=== PATIENT | male | born 1990 | race Caucasian/White ===

== ENCOUNTER 2017-06-27 17:49 | Emergency (ER) | payer OTHER ==
[2017-06-27] MEDS ORDERED: Adacel (T-DAP) 0.5 ML VIAL ONE (18:51)
--- NOTE | 2017-06-27 19:28 | RAD ---
THREE VIEWS OF THE LEFT HAND 06/27/17 INDICATION: Laceration. FINDINGS: No acute fracture or subluxation is evident. No radiopaque foreign body is demonstrated. IMPRESSION: No radiopaque foreign body. No acute osseous abnormality. POS: [facility]
== END 2017-06-27 20:20 | disposition home or self-care (01) ==
LOC: SCSER 17:49
DX: S61.412A Laceration without foreign body of left hand, initial encounter (principal); F17.210 Nicotine dependence, cigarettes, uncomplicated; Z23 Encounter for immunization; W26.8XXA Contact with other sharp object(s), not elsewhere classified, initial encounter; Y92.69 Other specified industrial and construction area as the place of occurrence of the external cause; Y99.0 Civilian activity done for income or pay
CPT/HCPCS: 12001; 90471; 90715; 99406

== ENCOUNTER 2024-07-04 14:25 | Inpatient (IN) | payer BC ==
[2024-07-04 14:48] VITALS: BMI 29.2
[2024-07-04] MEDS: Lorazepam 2 MG/ML VIAL ONE (14:50)
[2024-07-04] MEDS ORDERED: Ondansetron ODT 4 MG TAB PO PRN (15:07)
[2024-07-04] MEDS ORDERED: Lorazepam 1 MG TAB PO PRN (15:07)
[2024-07-04] MEDS ORDERED: Lorazepam 2 MG/ML VIAL IM PRN (15:07)
[2024-07-04] MEDS ORDERED: Lorazepam 1 MG TAB PO SCH (15:15)
[2024-07-04] MEDS ORDERED: Electrolyte Replacement Protocol FS SCH (15:15)
[2024-07-04] MEDS ORDERED: Thiamine HCl 200 MG/2 ML VIAL SLOW IVP SCH (15:15)
[2024-07-04] MEDS: Dexmedetomidine In 0.9 % NaCl 100 ML IVPB SCH (15:20)
[2024-07-04 15:47] LABS: #Basophils 0.04 10x3/uL (0.0-0.2); %Eosinophils 1.5 % (0.0-10.0); %Lymphocytes 15.8 % (21.0-51.0); Hematocrit 45.2 % (42.0-52.0); Hemoglobin 15.8 g/dL (14.0-18.0); Mean Corpuscular Hemoglobin 33.3 pg (27.0-31.0); Mean Corpuscular Volume 95.4 fL (78.0-98.0); Mean Platelet Volume 11.5 fL (7.4-10.4); Platelet Count 79 10x3/uL (130-400); RBC Distribution Width 12.6 % (11.5-14.5); Red Blood Cell (RBC) Count 4.74 mill/uL (4.70-6.10)
[2024-07-04 15:59] LABS: ALT (SGPT) 69 U/L (8-55); AST (SGOT) 111 U/L (5-34); Albumin 3.2 g/dL (3.5-5.0); Alkaline Phosphatase 105 U/L (40-110); Anion Gap 15 mmol/L (10-20); BUN (Urea Nitrogen) 8 mg/dL (8.9-20.6); Bilirubin, Direct 2.3 mg/dL (0.1-0.3); Bilirubin, Total 3.8 mg/dL (0.2-1.2); Calc. Creatinine Clearance 252 mL/min (70-130); Calcium 8.4 mg/dL (7.8-10.44); Carbon Dioxide 19 mmol/L (22-29); Chloride 109 mmol/L (98-107); Estimated GFR 133; Globulin 3.6 g/dL (2.4-3.5); Glucose 97 mg/dL (70-105); Magnesium 1.8 mg/dL (1.6-2.6); Potassium 4.4 mmol/L (3.5-5.1); Protein, Total 6.8 g/dL (6.0-8.3); Sodium 139 mmol/L (136-145)
[2024-07-04] MEDS: Potassium Phosphate 15 MMOL in Sodium Chloride 0.9% 100 ML IVPB SCH (17:08)
[2024-07-04] MEDS: Thiamine HCl 200 MG/2 ML VIAL SLOW IVP SCH (17:08)
[2024-07-04] MEDS: Lactated Ringer's 1,000 ML IV SCH (17:08)
[2024-07-04] MEDS: Magnesium 2 GM/50 ML(in water) 2 GM in Premix 1 BAG IVPB SCH (17:09)
[2024-07-04] MEDS: Pantoprazole 40 MG VIAL IVP SCH (17:14)
[2024-07-04] MEDS: chlordiazePOXIDE HCl 25 MG CAP PO SCH (17:14)
[2024-07-04] MEDS: FLU (Fluarix Triv) TS24-25(6MOS UP)/PF 45 MCG/0.5 ML Syringe IM ONE (20:17)
[2024-07-04] MEDS: Lorazepam 2 MG/ML VIAL SLOW IVP SCH (20:27)
[2024-07-05 05:23] LABS: #Basophils 0.07 10x3/uL (0.0-0.2); %Basophils 1.7 % (0.0-1.0); %Eosinophils 2.2 % (0.0-10.0); %Lymphocytes 24.1 % (21.0-51.0); %Monocytes 21.4 % (0.0-10.0); %Neutrophils 50.4 % (42.0-75.0); Hemoglobin 15.5 g/dL (14.0-18.0); Mean Corpuscular Hemoglobin 33.5 pg (27.0-31.0); Mean Corpuscular Volume 101.7 fL (78.0-98.0); Mean Platelet Volume 11.5 fL (7.4-10.4); Platelet Count 97 10x3/uL (130-400); RBC Distribution Width 13.2 % (11.5-14.5); Red Blood Cell (RBC) Count 4.62 mill/uL (4.70-6.10)
[2024-07-05 05:27] LABS: Anion Gap 14 mmol/L (10-20); BUN (Urea Nitrogen) 9 mg/dL (8.9-20.6); Calc. Creatinine Clearance 231 mL/min (70-130); Calcium 8.1 mg/dL (7.8-10.44); Carbon Dioxide 16 mmol/L (22-29); Chloride 108 mmol/L (98-107); Estimated GFR 130; Glucose 76 mg/dL (70-105); Potassium 4.2 mmol/L (3.5-5.1); Sodium 134 mmol/L (136-145)
[2024-07-05] MEDS: Enoxaparin 40 MG (0.4 mL) SYRINGE SC SCH (09:05)
[2024-07-05] MEDS: Pantoprazole 40 MG VIAL IVP SCH (09:06)
[2024-07-05] MEDS: Multivit, Therapeutic 1 TAB PO SCH (09:06)
[2024-07-05] MEDS: Folic Acid 1 MG TAB PO SCH (09:06)
[2024-07-05] MEDS ORDERED: Lorazepam 2 MG/ML VIAL IM PRN (10:17)
[2024-07-05] MEDS: Lorazepam 1 MG TAB PO SCH (11:14)
[2024-07-05 12:22] LABS: ALT (SGPT) 62 U/L (8-55); AST (SGOT) 103 U/L (5-34); Albumin 2.9 g/dL (3.5-5.0); Alkaline Phosphatase 99 U/L (40-110); Bilirubin, Total 3.5 mg/dL (0.2-1.2); Magnesium 1.7 mg/dL (1.6-2.6); Protein, Total 6.3 g/dL (6.0-8.3)
[2024-07-05] MEDS: Lorazepam 1 MG TAB PO PRN (13:30)
[2024-07-05] MEDS: Magnesium 2 GM/50 ML(in water) 2 GM in Premix 1 BAG IVPB SCH (14:15)
[2024-07-05] MEDS ORDERED: Lorazepam 1 MG TAB PO PRN (15:07)
[2024-07-06] MEDS: Melatonin 3 MG TAB PO PRN (00:43)
[2024-07-06] MEDS: traZODone HCl 50 MG TAB PO SCH ×2 (00:43→21:08)
[2024-07-06] MEDS: QUEtiapine 25 MG TAB PO SCH ×2 (00:43→21:08)
[2024-07-06 04:26] LABS: Hematocrit 42.8 % (42.0-52.0); Hemoglobin 15.1 g/dL (14.0-18.0); Mean Corpuscular HGB CONC 35.3 g/dL (32.0-36.0); Mean Corpuscular Hemoglobin 33.3 pg (27.0-31.0); Mean Corpuscular Volume 94.3 fL (78.0-98.0); Platelet Count 95 10x3/uL (130-400); RBC Distribution Width 12.5 % (11.5-14.5); Red Blood Cell (RBC) Count 4.54 mill/uL (4.70-6.10)
[2024-07-06 04:38] LABS: ALT (SGPT) 59 U/L (8-55); AST (SGOT) 91 U/L (5-34); Albumin 2.7 g/dL (3.5-5.0); Alkaline Phosphatase 95 U/L (40-110); Anion Gap 13 mmol/L (10-20); BUN (Urea Nitrogen) 6 mg/dL (8.9-20.6); Bilirubin, Total 2.9 mg/dL (0.2-1.2); Calc. Creatinine Clearance 230 mL/min (70-130); Calcium 8.1 mg/dL (7.8-10.44); Carbon Dioxide 21 mmol/L (22-29); Chloride 105 mmol/L (98-107); Estimated GFR 129; Globulin 3.3 g/dL (2.4-3.5); Glucose 97 mg/dL (70-105); Potassium 3.5 mmol/L (3.5-5.1); Sodium 135 mmol/L (136-145)
[2024-07-06 05:20] LABS: Band 5 % (5-11); Eosinophils 3 % (0-10); Large Platelets 23.8 % (0-5); Lymphocytes 16 % (21-51); Metamyelocyte 1 % (0-0); Monocytes 9 % (0-10); Myelocyte 1 % (0-0); Neutrophil 62 % (42-75); Platelet Adequacy Comment Platelets Decreased; RBC Morphology Within Normal Limits; Reactive Lymphocytes 2 % (0-10); Vacuoles SLIGHT
[2024-07-06] MEDS: Potassium Chloride 20 MEQ TAB PO SCH (09:07)
[2024-07-06] MEDS: Thiamine 100 MG TAB PO SCH (09:16)
[2024-07-06] MEDS ORDERED: Lorazepam 1 MG TAB PO PRN ×2 (10:17→15:07)
[2024-07-06] MEDS ORDERED: Lorazepam 0.5 MG TAB PO SCH (16:00)
[2024-07-06 17:16] VITALS: BMI 29.2
[2024-07-06] MEDS: chlordiazePOXIDE HCl 25 MG CAP PO SCH (22:48)
[2024-07-07 06:18] LABS: Hematocrit 43.8 % (42.0-52.0); Hemoglobin 14.9 g/dL (14.0-18.0); Mean Corpuscular Hemoglobin 33.1 pg (27.0-31.0); Mean Corpuscular Volume 97.3 fL (78.0-98.0); Mean Platelet Volume 10.9 fL (7.4-10.4); Platelet Count 102 10x3/uL (130-400); RBC Distribution Width 13.1 % (11.5-14.5)
[2024-07-07 06:29] LABS: Anion Gap 9 mmol/L (10-20); BUN (Urea Nitrogen) 6 mg/dL (8.9-20.6); Calc. Creatinine Clearance 179 mL/min (70-130); Calcium 9.2 mg/dL (7.8-10.44); Carbon Dioxide 29 mmol/L (22-29); Chloride 104 mmol/L (98-107); Estimated GFR 120; Glucose 82 mg/dL (70-105); Potassium 5.2 mmol/L (3.5-5.1); Sodium 137 mmol/L (136-145)
[2024-07-07 07:28] VITALS: TEMP 98.7
[2024-07-07 07:55] LABS: Band 3 % (5-11); Eosinophils 3 % (0-10); Large Platelets 17.6 % (0-5); Lymphocytes 26 % (21-51); Monocytes 9 % (0-10); Neutrophil 45 % (42-75); Platelet Adequacy Comment Platelets Decreased; Polychromasia SLIGHT = 2-3 cells HPF (0-2); Reactive Lymphocytes 10 % (0-10)
[2024-07-07] MEDS: Lorazepam 0.5 MG TAB PO SCH (09:57)
[2024-07-07] MEDS ORDERED: Lorazepam 1 MG TAB PO PRN (10:17)
[2024-07-07 11:52] VITALS: BP 146/91
[2024-07-07] MEDS: Ketorolac Tromethamine 30 MG (1 mL) VIAL IVP SCH (14:21)
[2024-07-07] MEDS ORDERED: Lorazepam 0.5 MG TAB PO PRN (15:07)
[2024-07-08] MEDS ORDERED: Lorazepam 0.5 MG TAB PO PRN (10:17)
== END 2024-07-07 17:47 | DRG 896 ==
LOC: IMCU/EMU 14:27 → T4-B 07-06 19:44
PROVIDERS: ADMIT Hospitalist; ATTEND Internal Medicine
DX: F10.231 Alcohol dependence with withdrawal delirium (principal); G93.41 Metabolic encephalopathy; F33.9 Major depressive disorder, recurrent, unspecified; K70.10 Alcoholic hepatitis without ascites; D69.6 Thrombocytopenia, unspecified; E83.42 Hypomagnesemia; K70.30 Alcoholic cirrhosis of liver without ascites; F41.9 Anxiety disorder, unspecified; Z88.6 Allergy status to analgesic agent; Z98.890 Other specified postprocedural states
CPT/HCPCS: 36415; 70450; 76705; 80048; 80053; 80076; 80306; 80307; 81001; 82140; 82248; 82550; 83690; 83735; 84100; 84484; 85025; 85610; 85730; 93005; J1650; J1885; J2060; J2470; J3411; J3475; J3480; J7030; J7120